=== PATIENT | female | born 2000 | race Caucasian/White ===

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

== ENCOUNTER 2022-02-01 08:00 | Outpatient (CLI) | payer OTHER ==
[2022-02-01 20:58] LABS: BACTERIAL VAGINOSIS DNA NEGATIVE (NEGATIVE); CANDIDA GLABRATA DNA NEGATIVE (NEGATIVE); CANDIDA GROUP DNA POSITIVE (NEGATIVE); CANDIDA KRUSEI DNA NEGATIVE (NEGATIVE); TRICHOMONAS VAGINALIS DNA NEGATIVE (NEGATIVE)
[2022-02-01 21:54] LABS: CHLAMYDIA TRACHOMATIS DNA NEGATIVE (NEGATIVE); NEISSERIA GONORRHOEAE DNA NEGATIVE (NEGATIVE)
[2022-02-02 08:10] LABS: RPR Non Reactive (Non Reactive)
== END 2022-02-01 23:59 | disposition home or self-care (01) ==
LOC: LAB.N 08:00
PROVIDERS: ATTEND Physician Assistant
DX: Z20.2 Contact with and (suspected) exposure to infections with a predominantly sexual mode of transmission (principal)
CPT/HCPCS: 81514; 86592; 87491; 87591; 87661

== ENCOUNTER 2023-08-20 19:55 | Outpatient (CLI) | payer OTHER ==
--- NOTE | 2023-08-21 11:06 | Ultrasound Report ---
PROCEDURE: Pelvic w/Transvaginal INDICATIONS: PELVIC PAIN TECHNIQUE: Real-time scanning was performed of the pelvic organs, with image documentation. Additional endovagi nal scanning was necessary due to incomplete visualization of the adnexal and endometrial structures by transabdominal scanning. COMPARISON: None. FINDINGS: Uterus: Uterus is anteverted and normal in size at 8.5 x 2.6 x 4.5 cm. The myometrium is heterogene ous. The endometrium measures 3 mm in combined thickness. Intrauterine device is in place. Ovaries: The right ovary measures 3.2 x 2.3 x 3.4 cm, with a calculated ovarian volume of 18.4 cc. The left ovary measures 3.7 x 1.9 x 3 point cm, with a calculated ovarian volume of 12.1 cc. The ova lorne have a normal sonographic appearance. Less than 12 follicles can be seen in each ovary. No adn exal masses are seen. No cystic lesions measuring greater than 3 cm. Other: No pathologic free abdominal or pelvic fluid. IMPRESSION: Unremarkable pelvic ultrasound. Uterine device appears to be in appropriate position. Reviewed by: Jana Calderon MD, PhD on 08/21/2023 11:04 AM PDT Approved by: Jana Calderon MD, PhD on 08/21/2023 11:04 AM PDT Station ID: [id number]
== END 2023-08-20 19:56 | disposition home or self-care (01) ==
LOC: DI 19:55
PROVIDERS: ATTEND Nurse Practitioner Family
DX: R10.2 Pelvic and perineal pain (principal); Z97.5 Presence of (intrauterine) contraceptive device